=== PATIENT | female | born 1945 | race Two or more races ===

== ENCOUNTER → 2017-03-04 | Outpatient (CLI) | payer MEDICARE, OTHER ==
[~2017-03-04] VITALS: Ht 152.4 cm; Wt 79.2 kg
[~2017-03-04] MED LIST: ACET-66 PO; AMIO200T44 PO; CARB1TAB35 PO; CARV12 PO; DOXY-258 PO; FAMO20 PO; FEBU40T PO; FURO20 PO; LOSA1TAB37 PO; MECL-111 PO; OMEP20 PO; PRAM0.258 PO; PRAV40 PO; RIVA20TA PO; VITAD400 PO
[2017-03-04 10:37] VITALS: BP 118/69
== END | disposition home or self-care (01) ==
LOC: HBOWC 09:25
PROVIDERS: ATTEND Emergency Medicine
DX: I87.2 Venous insufficiency (chronic) (peripheral) (principal); L97.821 Non-pressure chronic ulcer of other part of left lower leg limited to breakdown of skin; G20 Parkinson's disease; E78.5 Hyperlipidemia, unspecified; F32.9 Major depressive disorder, single episode, unspecified; M81.0 Age-related osteoporosis without current pathological fracture; Z86.718 Personal history of other venous thrombosis and embolism
CPT/HCPCS: 97597; G0463

== ENCOUNTER → 2017-03-21 | Outpatient (CLI) | payer MEDICARE, OTHER ==
[2017-03-21 10:56] VITALS: BP 125/50
== END | disposition home or self-care (01) ==
LOC: HBOWC 10:43
PROVIDERS: ATTEND Emergency Medicine
DX: I87.2 Venous insufficiency (chronic) (peripheral) (principal); L97.821 Non-pressure chronic ulcer of other part of left lower leg limited to breakdown of skin; E78.5 Hyperlipidemia, unspecified; F32.9 Major depressive disorder, single episode, unspecified; Z86.718 Personal history of other venous thrombosis and embolism
CPT/HCPCS: 97597